=== PATIENT | female | born 1950 | race Two or more races ===

== ENCOUNTER 2023-08-17 04:48 | Day surgery (SDC) | payer OTHER, BC ==
[2023-08-12 16:39] VITALS: BMI 31.1
[~2023-08-17 04:48] MED LIST: ONDANSETRON 4 MG/2 ML VIAL IVPUSH PRN; oxyCODONE HCL 5 MG TABLET PO PRN
[2023-08-17] MEDS ORDERED: ceFAZolin SODIUM 1 GM VIAL ONE (06:58)
[2023-08-17] MEDS ORDERED: ONDANSETRON 4 MG/2 ML VIAL ONE (06:58)
[2023-08-17] MEDS ORDERED: KETOROLAC TROMETHAMINE 30 MG/1 ML VIAL ONE (07:00)
[2023-08-17] MEDS ORDERED: DEXAMETHASONE SOD PHOSPHATE 4 MG/1 ML VIAL ONE (07:00)
[2023-08-17] MEDS ORDERED: SODIUM CHLORIDE 0.9% P/F 10 ML VIAL IJ ONE (07:01)
[2023-08-17] MEDS ORDERED: PROPOFOL 60 ML ONE (07:02)
[2023-08-17] MEDS ORDERED: LIDOCAINE HCL/PF 2% SDV 5ML VIAL ONE ×2 (07:02→08:04)
[2023-08-17] MEDS ORDERED: FENTANYL CITRATE/PF 50 MCG/ML VIAL ONE ×3 (07:05→08:51)
[2023-08-17] MEDS ORDERED: MIDAZOLAM HCL 2 MG/2 ML SINGLE DOSE VIAL ONE ×2 (07:06→07:37)
[2023-08-17] MEDS ORDERED: oxyCODONE HCL 5 MG TABLET PO PRN (07:39)
[2023-08-17] MEDS ORDERED: IBUPROFEN 600 MG TABLET (FP) PO PRN (07:39)
[2023-08-17] MEDS ORDERED: ONDANSETRON 4 MG/2 ML VIAL IVPUSH PRN (07:39)
[2023-08-17] MEDS ORDERED: IBUPROFEN 800 MG/8 ML IJ IVPB PRN ×2 (07:39→07:43)
[2023-08-17] MEDS ORDERED: ELECTROLYTE-148 SOLN 1,000 ML IV SCH (07:45)
[2023-08-17] MEDS ORDERED: IBUPROFEN 800 MG/8 ML IJ IVPB ONE (08:44)
[2023-08-17] MEDS ORDERED: ACETAMINOPHEN 1000 MG/100 ML BAG IVPB ONE (08:50)
[2023-08-17] MEDS: LACTATED RINGERS SOLUTION 1,000 ML IV SCH (09:34)
[2023-08-17 10:00] VITALS: RESP 16
[2023-08-17 11:20] VITALS: BP 125/66; PULSE 84; TEMP 98
== END 2023-08-17 11:25 | disposition home or self-care (01) ==
LOC: JASU-SURG 04:48
PROVIDERS: ATTEND Obstetrics & Gynecology
PROC: 0UB98ZZ Excision of Uterus, Via Natural or Artificial Opening Endoscopic (ICD-10-PCS; principal; 2023-08-17 07:30)
DX: N84.0 Polyp of corpus uteri (principal)
CPT/HCPCS: 86850; 86900; 86901; 88305-TC; 94760